=== PATIENT | female | born 2000 | race Caucasian/White ===

== ENCOUNTER → 2022-03-05 | Outpatient (CLI) | payer BC, MEDICAID, SELFPAY ==
--- NOTE | 2022-03-05 16:22 | NEURO_ITS ---
NCS and/or EMG Patient Report Ordering Doctor: Deepali Hester DATE OF SERVICE: 03/05/22 Indication: Bilateral hand numbness primarily in digits 1-3. Thumb weakness. Symptoms are more pronounced on the right. Findings: Nerve conduction studies were performed in the right and left upper extremities. The right median motor study recording the abductor pollicis brevis showed a reduced amplitude, markedly prolonged distal latency and normal conduction velocity. The right ulnar motor study recording the abductor digiti minimi showed a normal amplitude, normal distal latency and normal conduction velocity. No conduction block or focal slowing was present across the elbow. The right median sensory response recording digit two was absent. The right ulnar sensory response recording digit five showed a normal amplitude, latency and conduction velocity. The right radial sensory response recording over the e xtensor snuff box showed a normal amplitude, latency and conduction velocity. The left median motor study recording the abductor pollicis brevis showed a markedly reduced amplitude, markedly prolonged distal latency and slowed conduction velocity. The left ulnar motor study recording the abductor digiti minimi showed a normal amplitude, normal distal latency and normal conduction velocity. No conduction block or focal slowing was present across the elbow. The left median sensory response recording digit two was absent. The left ulnar sensory response recording digit five showed a normal amplitude, latency and conduction velocity. The left radial sensory response recording over the extensor snuff box showed a normal amplitude, latency and conduction velocity. Right median-ulnar lumbrical / interosseous motor latencies showed a markedly prolonged median latency compared to the ulnar. Left median-ulnar lumbrical / interosseous motor latencies showed a markedly prolonged median latency compared to the ulnar. Needle EMG of the right abductor pollicis brevis muscle was performed. Active denervation was present. Motor units were long duration and polyphasic with markedly reduced recruitment (1 rapid unit). Needle EMG of the left abductor pollicis brevis muscle was performed. No active denervation was present. Motor units were normal morphology with slightly reduced recruitment. Impression: This is a markedly abnormal study. 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 These findings are compatible with the clinical diagnosis of carpal tunnel syndrome. While the median CMAPs were low amplitude, this was largely an effect of temporal dispersion rather that a true reflection of the degree of axonal loss. This portends a favorable prognosis with adequate decompression. Marito Hallman D.O. [employer] Codes Neurology Neurology Interp Codes: 00804-20 Musc test done w/n test comp (interp) (Qty:2) and 44998-56 Nr cnd test 13/> studies (interp)
== END | disposition home or self-care (01) ==
PROVIDERS: PCP Family Medicine; Referring Provider Physician Assistant; Visit Provider Physician Assistant
DX: R20.0 Anesthesia of skin (principal)
CPT/HCPCS: 95885; 95913